=== PATIENT | male | born 1980 | race Caucasian/White ===

== ENCOUNTER 2024-10-17 15:59 | Emergency (ER) | payer BC, OTHER ==
[~2024-10-17] VITALS: Ht 188 cm; Wt 104.3 kg
[~2024-10-17 15:59] MED LIST: CEPH500 PO; DOXY100 PO; ONDA4ODT MM; OXYACE5T PO
[2024-10-17] MEDS ORDERED: IBUP800 PO (16:16)
== END 2024-10-17 16:17 | disposition home or self-care (01) ==
LOC: ER 15:59
DX: B34.9 Viral infection, unspecified (principal); Z88.1 Allergy status to other antibiotic agents
CPT/HCPCS: 99282